=== PATIENT | male | born 1965 | race Two or more races ===

== ENCOUNTER 2023-09-23 12:17 | Inpatient (IN) | payer MEDICARE ==
[~2023-09-23] VITALS: Ht 177.8 cm; Wt 73.5 kg
[~2023-09-23 12:17] MED LIST: IBUP1TAB5 PO
[2023-09-23 13:55] VITALS: PULSE 85; RESP 14; O2SAT 91
[2023-09-23 13:55] LABS: Basophils # (auto) 0 10 ^3/uL (0-0.2); Basophils % (auto) 0.5 % (0.0-2.0); Eosinophils # (auto) 0.3 10 ^3/uL (0-0.8); Eosinophils % (auto) 3.4 % (0.0-7.0); Hematocrit 56.8 % (41.0-53.0); Hemoglobin 18.6 g/dL (13.5-17.5); Lymphocytes # (auto) 1.1 10 ^3/uL (0.4-5.4); Mean Corpuscular Hemoglobin 31.7 pg (28.0-32.0); Mean Corpuscular Hgb Conc. 32.8 g/dL (32.0-36.0); Mean Corpuscular Volume 96.9 fL (80.0-100.0); Monocytes # (auto) 0.9 10 ^3/uL (0-1.3); Monocytes % (auto) 9.5 % (0.0-12.0); Neutrophils # (auto) 7.5 10 ^3/uL (1.6-8.6); Neutrophils % (auto) 75.6 % (37.0-80.0); Nucleated Red Blood Cells % 0.1 %; Red Blood Cells 5.87 10^6/uL (4.5-5.90); Red Cell Distribution Width 13.8 % (11.8-14.3); White Blood Cell 9.9 10^3/uL (4.4-10.8)
[2023-09-23 13:57] LABS: Chloride 102 mmol/L (98-107); Potassium 3.9 mmol/L (3.5-5.1); Sodium 139 mmol/L (136-145)
[2023-09-23 13:58] LABS: Anion Gap 7 (5-15); Carbon Dioxide 30 mmol/L (20-30)
[2023-09-23 13:59] LABS: Calcium 9.8 mg/dL (8.5-10.1)
[2023-09-23 14:03] LABS: Blood Urea Nitrogen 15 mg/dL (9-23); Glucose 112 mg/dL (74-106)
[2023-09-23] MEDS: SODIUM CHLORIDE 0.9% 1,000 ML IV ONE (14:34)
[2023-09-23 15:30] LABS: COVID19 ANTIGEN SOFIA FIA NEGATIVE (NEGATIVE)
[2023-09-23 16:43] LABS: Urine Bacteria NONE SEEN /hpf (None Seen); Urine Blood Negative /uL (Negative); Urine Clarity Clear (Clear); Urine Color Yellow (Yellow); Urine Hyaline Cast FEW /lpf (0 - 2); Urine Mucus FEW (None Seen); Urine Protein, UAD TRACE (Negative); Urine Specific Gravity 1.021 (1.001-1.035); Urine Sperm PRESENT /hpf (None Seen); Urine Urobilinogen Normal (Negative); Urine WBC 8 /hpf (0 - 3)
[2023-09-23] MEDS ORDERED: ALPR1TAB7 PO (18:13)
[2023-09-23] MEDS ORDERED: NITROGLYCERIN 0.4 MG SL TAB SL PRN (18:15)
[2023-09-23] MEDS ORDERED: IPRATROPIUM BROM 0.5 MG/2.5ML INH SOL NEB PRN (18:15)
[2023-09-23] MEDS ORDERED: ALBUTEROL SULF 2.5 MG/0.5ML(0.5%) NEB SOLN NEB PRN (18:15)
[2023-09-23] MEDS ORDERED: hydrALAZINE HCL 20 MG/ML VL IV PRN (18:15)
[2023-09-23] MEDS ORDERED: ONDANSETRON HCL 4 MG/2 ML VIAL IV PRN (18:15)
[2023-09-23] MEDS ORDERED: HYDROcodone-ACET 5/325MG TAB PO PRN (18:15)
[2023-09-23] MEDS ORDERED: ACETAMINOPHEN 325 MG TAB PO PRN (18:15)
[2023-09-23] MEDS ORDERED: MONT-8 PO (18:15)
[2023-09-23] MEDS ORDERED: MORPHINE SULFATE INJ 2 MG/ml SYRG IV PRN ×2 (18:15)
[2023-09-23] MEDS ORDERED: DOCUSATE SOD 100 MG CAP PO PRN (18:15)
[2023-09-23] MEDS ORDERED: NEBI10TA2 PO (18:15)
[2023-09-23 18:30] VITALS: PULSE 93; RESP 20; O2SAT 97
[2023-09-23] MEDS ORDERED: AZITHROMYCIN 500MG/ 250ML 250 ML IV ONE (18:30)
[2023-09-23] MEDS ORDERED: cefTRIAXone 1GM/50ML D5W 50 ML IV ONE (18:30)
[2023-09-23 18:57] VITALS: BP 129/88; PULSE 93; RESP 20; TEMP 98.5; O2SAT 97
[2023-09-23 19:30] VITALS: PULSE 92; RESP 15; O2SAT 94
[2023-09-23] MEDS: METOPROLOL TARTRATE 50 MG TAB PO SCH (21:38)
[2023-09-23] MEDS: MONTELUKAST SODIUM 10 MG TAB PO SCH (21:38)
[2023-09-23] MEDS: methylPREDNISolone SOD SUCC 40 MG/ML VL IV SCH (21:38)
[2023-09-23 22:00] VITALS: BP 138/84; PULSE 77; RESP 18; TEMP 98.4; O2SAT 90
[2023-09-23] MEDS ORDERED: HYDR-4798 PO (22:56)
[2023-09-23] MEDS ORDERED: ALPR1TAB2 PO (22:56)
[2023-09-24] VITALS (9 sets, daily range): BP systolic 117–140; BP diastolic 79–95; PULSE 72–86; RESP 16–18; TEMP 98.1–98.5; O2SAT 91–100
[2023-09-24] MEDS: ALPRAZolam 0.5 MG TAB PO PRN (00:29)
[2023-09-24 06:21] LABS: Basophils # (auto) 0 10 ^3/uL (0-0.2); Basophils % (auto) 0.1 % (0.0-2.0); Eosinophils # (auto) 0 10 ^3/uL (0-0.8); Hematocrit 50.7 % (41.0-53.0); Hemoglobin 16.8 g/dL (13.5-17.5); Lymphocytes # (auto) 0.3 10 ^3/uL (0.4-5.4); Lymphocytes % (auto) 5.3 % (10.0-50.0); Mean Corpuscular Hemoglobin 32.4 pg (28.0-32.0); Mean Corpuscular Hgb Conc. 33.1 g/dL (32.0-36.0); Mean Corpuscular Volume 98.1 fL (80.0-100.0); Monocytes # (auto) 0.1 10 ^3/uL (0-1.3); Monocytes % (auto) 2.2 % (0.0-12.0); Neutrophils # (auto) 5.2 10 ^3/uL (1.6-8.6); Neutrophils % (auto) 92.4 % (37.0-80.0); Red Blood Cells 5.17 10^6/uL (4.5-5.90); Red Cell Distribution Width 13.8 % (11.8-14.3); White Blood Cell 5.7 10^3/uL (4.4-10.8)
[2023-09-24 06:25] LABS: Alanine Aminotransferase 19 U/L (7-40); Albumin 4.2 g/dL (3.2-4.8); Alkaline Phosphatase 75 U/L (46-116); Anion Gap 5 (5-15); Aspartate Aminotransferase 16 U/L (13-40); BUN/Creatinine Ratio 12.5 (10.0-20.0); Bilirubin, Total 0.9 mg/dL (0.2-1.0); Blood Urea Nitrogen 11 mg/dL (9-23); Calcium 9.5 mg/dL (8.5-10.1); Carbon Dioxide 28 mmol/L (20-30); Chloride 103 mmol/L (98-107); Glucose 150 mg/dL (74-106); Potassium 4.6 mmol/L (3.5-5.1); Sodium 136 mmol/L (136-145); Total Protein 6.5 g/dL (5.7-8.2)
[2023-09-24] MEDS ORDERED: cefTRIAXone 1GM/50ML D5W 50 ML IV SCH (09:00)
[2023-09-24] MEDS ORDERED: AZITHROMYCIN 500MG/ 250ML 250 ML IV SCH (10:00)
[2023-09-24 10:57] LABS: CRP High Sensitivity 0.93 mg/dL (<1.0)
[2023-09-24 11:26] LABS: Erythrocyte Sedimentation Rate 3 mm/hr (0-20)
[2023-09-24] MEDS: PANTOPRAZOLE 40 MG TAB PO SCH (11:42)
[2023-09-24] MEDS: levoFLOXacin 500MG 100 ML IV SCH (11:42)
[2023-09-24] MEDS: methylPREDNISolone SOD SUCC 40 MG/ML VL IV SCH (23:34)
[2023-09-25 05:00] VITALS: BP 124/71; PULSE 65; RESP 18; TEMP 98; O2SAT 95
[2023-09-25 08:00] VITALS: O2SAT 95
[2023-09-25 08:30] VITALS: PULSE 76
[2023-09-25 09:00] VITALS: BP 134/86; PULSE 76; RESP 18; TEMP 98.4; O2SAT 94
[2023-09-25 09:30] VITALS: O2SAT 94
[2023-09-25] MEDS ORDERED: IPRA0.00 IN (09:30)
[2023-09-25 10:32] VITALS: BP 136/74; PULSE 68; TEMP 36.7
== END 2023-09-25 11:30 | disposition home or self-care (01) | DRG 189 ==
LOC: ER 12:17 → TELE 18:12 → TELE-WESTW 22:14
PROVIDERS: ADMIT Nurse Practitioner Family; ATTEND Nurse Practitioner Acute Care
DX: J96.21 Acute and chronic respiratory failure with hypoxia (principal); J44.1 Chronic obstructive pulmonary disease with (acute) exacerbation; J45.901 Unspecified asthma with (acute) exacerbation; F41.9 Anxiety disorder, unspecified; Z20.822 Contact with and (suspected) exposure to COVID-19; E78.5 Hyperlipidemia, unspecified; I10 Essential (primary) hypertension; Z88.1 Allergy status to other antibiotic agents; Z87.891 Personal history of nicotine dependence; Z77.120 Contact with and (suspected) exposure to mold (toxic); Z82.49 Family history of ischemic heart disease and other diseases of the circulatory system; Z80.9 Family history of malignant neoplasm, unspecified
CPT/HCPCS: 36415; 70450; 71045; 71250; 80048; 80053; 81001; 82550; 83605; 84484; 85025; 85379; 85652; 86141; 87040; 87426; 93005; 93971; 94640; 96360; 99291; G0378; J1956

== ENCOUNTER 2023-10-03 10:11 | Emergency (ER) | payer MEDICARE ==
[~2023-10-03] VITALS: Ht 177.8 cm; Wt 73.0 kg
[~2023-10-03 10:11] MED LIST changes: +ALPR1TAB2 PO; +ALPR1TAB7 PO; +HYDR-4798 PO; +IPRA0.00 IN; +MONT-8 PO; +NEBI10TA2 PO
[2023-10-03 11:39] VITALS: BP 141/83; PULSE 99; RESP 16; TEMP 98.7; O2SAT 95
== END 2023-10-03 12:37 | disposition home or self-care (01) ==
LOC: ER 10:11
DX: S76.912A Strain of unspecified muscles, fascia and tendons at thigh level, left thigh, initial encounter (principal); M54.42 Lumbago with sciatica, left side; J44.9 Chronic obstructive pulmonary disease, unspecified; I10 Essential (primary) hypertension; E78.5 Hyperlipidemia, unspecified; Z90.49 Acquired absence of other specified parts of digestive tract; Z87.891 Personal history of nicotine dependence; Z79.1 Long term (current) use of non-steroidal anti-inflammatories (NSAID); Z79.899 Other long term (current) drug therapy; Z88.8 Allergy status to other drugs, medicaments and biological substances; X58.XXXA Exposure to other specified factors, initial encounter; Y93.89 Activity, other specified; Y92.89 Other specified places as the place of occurrence of the external cause; Y99.8 Other external cause status
CPT/HCPCS: 72100